=== PATIENT | male | born 1980 | race Hispanic/Latino ===

== ENCOUNTER 2016-11-17 10:04 | Emergency (ER) | payer MEDICAID ==
[2016-11-17 10:04] VITALS: BMI 24.2
[2016-11-17 10:31] VITALS: TEMP 97.8
--- NOTE | 2016-11-17 11:03 | ED PDOC ---
Arrival/HPI - General Chief Complaint: Lower Extremity Problem/Injury Time Seen by Provider: 11/17/16 10:45 Historian: Patient - History of Present Illness Narrative History of Present Illness (Text): 11/17/16 11:00 36 y/o male, pmh including crohn's disease/osteoporosis/osteorarthitis, allergic to penicillin, c/o lt. knee pain x 3 days. Pt. stated that he was trying to sit on the yoga position, hyperflex the lt. knee with twisting, been having lt. knee pain since, no thigh pain, no numbness or tingling, no fever or chills, no headache or night sweat, no other medical or psychological complaints. Past Medical History - Provider Review Nursing Documentation Reviewed: Yes - Infectious Disease Hx of Infectious Diseases: None - Tetanus Immunization Tetanus Immunization: Unknown - Cardiac Hx Cardiac Disorders: No - Pulmonary Hx Asthma: Yes - Integumentary Hx Dermatological Disorder: Yes Hx Eczema: Yes - Musculoskeletal/Rheumatological Hx Arthritis: Yes Hx Osteoporosis: Yes - Gastrointestinal Hx Crohn's Disease: Yes Other/Comment: feeding tube reveresed - Genitourinary/Gynecological Hx Genitourinary Disorders: No - Psychiatric Hx Psychophysiologic Disorder: No Hx Substance Use: No - Surgical History Other/Comment: Stomach sx from perforated intestine. cyst removed from abdomen - Anesthesia Hx Anesthesia: Yes Hx Anesthesia Reactions: No Family/Social History - Physician Review Nursing Documentation Reviewed: Yes Family/Social History: Unknown Family HX Smoking Status: Never Smoked Hx Alcohol Use: Yes Frequency of alcohol use: Socially Hx Substance Use: No Allergies/Home Meds Allergies/Adverse Reactions: Allergies lactulose Allergy (Verified 11/17/16 10:25) ANAPHYLAXIS Penicillins Allergy (Verified 11/17/16 10:25) ANAPHYLAXIS Home Medications: Home Meds Medication Instructions Recorded Confirmed Asacol HD 800mg 800 mg PO BID 03/21/16 11/17/16 Azithromycin [Zithromax] 250 mg PO DAILY 11/17/16 11/17/16 inFLIXimab [Remicade] 100 mg IV ONCE 11/17/16 11/17/16 Review of Systems - Review of Systems Constitutional: absent: Fatigue, Fevers Eyes: absent: Vision Changes ENT: absent: Hearing Changes Respiratory: absent: SOB, Cough Cardiovascular: absent: Chest Pain Musculoskeletal: Arthralgias, Myalgias. absent: Back Pain, Neck Pain, Joint Swelling Skin: absent: Rash, Pruritis, Skin Lesions Neurological: absent: Headache, Dizziness Physical Exam Vital Signs Reviewed: Yes Vital Signs Temp Pulse Resp BP Pulse Ox 11/17/16 10:29 97.8 F 75 19 125/82 95 Temperature: Afebrile Blood Pressure: Normal Pulse: Regular Respiratory Rate: Normal Appearance: Positive for: Well-Appearing, Non-Toxic, Comfortable Pain Distress: Moderate Mental Status: Positive for: Alert and Oriented X 3 - Systems Exam Head: Present: Atraumatic, Normocephalic Pupils: Present: PERRL Extroacular Muscles: Present: EOMI Conjunctiva: Present: Normal Mouth: Present: Moist Mucous Membranes Neck: Present: Normal Range of Motion Respiratory/Chest: Present: Clear to Auscultation, Good Air Exchange. No: Respiratory Distress, Accessory Muscle Use Cardiovascular: Present: Regular Rate and Rhythm, Normal S1, S2. No: Murmurs Abdomen: Present: Normal Bowel Sounds. No: Tenderness, Distention, Peritoneal Signs Back: Present: Normal Inspection Upper Extremity: Present: Normal Inspection. No: Cyanosis, Edema Lower Extremity: Present: Normal Inspection, Other (LLE: +ttp on the extensor distal thigh region, no joint swelling, FROM without limitation, sensation intact, motor 5/5, +DPPT pulses, capillary refill< 2 seconds, neurovascular intact. ). No: Edema Neurological: Present: GCS=15, CN II-XII Intact, Speech Normal Skin: Present: Warm, Dry, Normal Color. No: Rashes Psychiatric: Present: Alert, Oriented x 3, Normal Insight, Normal Concentration Medical Decision Making ED Course and Treatment: 11/17/16 11:02 -LLE venuous doppler/xray -indocin -harvinder wrap/crutches. 11/17/16 12:07 -LLE Venuous Doppler: as per preliminary report, no acute DVT -Lt. knee xray: no fracture or dislocation -Pt. feels better, will discharge home -Discharge home with indocin, harvinder wrap, crutches, ice compression, follow up with your own pmd and orthopedic within 2 days, return to the ER for any new or worsening signs or symptoms. - RAD Interpretation Radiology Orders: 11/17/16 10:59 KNEE WITH PATELLA LEFT 3 VIEW [RAD] Stat 11/17/16 11:03 DUPLEX LOWER EXTRM VEIN LEFT [US] Stat LLE Venuous Doppler: as per preliminary report, no acute DVT Lt. knee xray: no fracture or dislocation Computer Systems Security Administrator: Radiologist - Medication Orders Current Medication Orders: Discontinued Medications Indomethacin (Indocin) 50 mg PO STAT STA Stop: 11/17/16 11:00 - PA / BUSINESS ETHICS PROFESSOR / Resident Statement MD/DO has reviewed & agrees with the documentation as recorded. Disposition/Present on Arrival - Present on Arrival Any Indicators Present on Arrival: No History of DVT/PE: No History of Uncontrolled Diabetes: No Urinary Catheter: No History of Decub. Ulcer: No History Surgical Site Infection Following: None - Disposition Have Diagnosis and Disposition been Completed?: Yes Diagnosis: Tendinitis, Knee pain Disposition: HOME/ ROUTINE Disposition Time: 11:03 Patient Plan: Discharge Patient Problems: Current Active Problems Problem Status Onset Tendinitis Acute Condition: GOOD Additional Instructions: -Discharge home with indocin, harvinder wrap, crutches, ice compression, follow up with your own pmd and orthopedic within 2 days, return to the ER for any new or worsening signs or symptoms. Prescriptions: Indomethacin [Indocin] 50 mg PO TID PRN #30 cap PRN Reason: Other Referrals: Holly Meza MD [Primary Care Provider] - Follow up with primary Cherise Yoder MD [Staff Provider] - Follow up with primary Forms: [email or web address] (Indonesian), WORK NOTE
--- NOTE | 2016-11-17 12:26 | RAD ---
PROCEDURE: Left Knee Radiographs. HISTORY: Pain. COMPARISON: None. FINDINGS: BONES: Normal. No fracture. JOINTS: Normal. No osteoarthritis. JOINT EFFUSION: None. OTHER FINDINGS: None. IMPRESSION: Normal radiographs of the left knee.
[2016-11-17 12:33] VITALS: BP 122/80; PULSE 81; RESP 18; O2SAT 99
--- NOTE | 2016-11-17 14:59 | US ---
PROCEDURE: Left lower extremity venous US HISTORY: Leg pain and swelling. Evaluate for DVT. PHYSICIAN(S): Earle Chicas MD. TECHNIQUE: Duplex sonography and color-flow Doppler with graded compression were used to evaluate the deep venous system of the left lower extremity. FINDINGS: The visualized deep venous system of the left lower extremity is sonographically normal and compressible. Normal wave forms and augmentation are seen. There is no sonographic evidence for deep venous thrombosis in the visualized segments of the left lower extremity. IMPRESSION: 1. No sonographic evidence for deep venous thrombosis in the visualized segments of the left lower extremity.
== END 2016-11-17 12:56 | disposition home or self-care (01) ==
LOC: ED 10:04
DX: M76.892 Other specified enthesopathies of left lower limb, excluding foot (principal); M25.562 Pain in left knee

== ENCOUNTER 2017-07-04 01:31 | Observation (INO) | payer MEDICAID ==
[2017-07-04 01:37] VITALS: BMI 25.8
[2017-07-04 01:48] VITALS: PULSE 80
--- NOTE | 2017-07-04 02:06 | ED PDOC ---
Arrival/HPI - General Chief Complaint: Abdominal Pain Time Seen by Provider: 07/04/17 01:44 Historian: Patient - History of Present Illness Narrative History of Present Illness (Text): 07/04/17 02:06 Jona Wong is a 36 year old male, whose past medical history includes Crohn's disease, who presents to the emergency department complaining of constipation. Patient states for the past 3 days, he has been having difficulty moving his bowels and straining while using the bathroom. Patient notes associated lower abdominal pressure. Patient states discomfort is not similar to his usual Crohn' s symptoms. Patient denies any fever, chills, chest pain, shortness of breath, nausea, vomiting, diarrhea, urinary symptoms, back pain, neck pain, headache, dizziness, or any other complaints. Symptom Onset: Gradual Symptom Course: Unchanged Activities at Onset: Light Context: Home Past Medical History - Provider Review Nursing Documentation Reviewed: Yes - Infectious Disease Hx of Infectious Diseases: None - Tetanus Immunization Tetanus Immunization: Unknown - Cardiac Hx Cardiac Disorders: No - Pulmonary Hx Asthma: Yes - Neurological Hx Neurological Disorder: No - HEENT Hx HEENT Disorder: No - Renal Hx Renal Disorder: No - Endocrine/Metabolic Hx Endocrine Disorders: No - Hematological/Oncological Hx Blood Disorders: No - Integumentary Hx Dermatological Disorder: Yes Hx Eczema: Yes - Musculoskeletal/Rheumatological Hx Arthritis: Yes Hx Osteoporosis: Yes - Gastrointestinal Hx Crohn's Disease: Yes Other/Comment: feeding tube reveresed - Genitourinary/Gynecological Hx Genitourinary Disorders: No - Psychiatric Hx Psychophysiologic Disorder: No Hx Depression: Yes Hx Substance Use: No - Surgical History Other/Comment: Stomach sx from perforated intestine. cyst removed from abdomen - Anesthesia Hx Anesthesia: Yes Hx Anesthesia Reactions: No Family/Social History - Physician Review Nursing Documentation Reviewed: Yes Family/Social History: Unknown Family HX Smoking Status: Never Smoked Hx Alcohol Use: Yes Frequency of alcohol use: Socially Hx Substance Use: No Allergies/Home Meds Allergies/Adverse Reactions: Allergies lactulose Allergy (Verified 07/04/17 01:37) ANAPHYLAXIS Penicillins Allergy (Verified 07/04/17 01:37) ANAPHYLAXIS Home Medications: Home Meds Medication Instructions Recorded Confirmed Asacol HD 800mg 800 mg PO TID 03/21/16 07/04/17 Purinenthal 50 mg PO DAILY 07/04/17 07/04/17 Review of Systems - Physician Review All systems were reviewed & negative as marked: Yes - Review of Systems Constitutional: Normal. absent: Fevers Eyes: Normal ENT: Normal Respiratory: Normal. absent: SOB, Cough Cardiovascular: Normal. absent: Chest Pain Gastrointestinal: Abdominal Pain, Constipation. absent: Diarrhea, Vomiting Genitourinary Male: Normal. absent: Dysuria, Frequency, Hematuria, Urinary Output Changes Musculoskeletal: Normal. absent: Back Pain, Neck Pain Skin: Normal. absent: Rash Neurological: Normal. absent: Headache, Dizziness Endocrine: Normal Hemo/Lymphatic: Normal Psychiatric: Normal Physical Exam Vital Signs Reviewed: Yes Vital Signs Temp Pulse Resp BP Pulse Ox 07/04/17 07:20 98.1 F 80 18 142/87 99 07/04/17 01:43 97.8 F 80 18 156/94 H 96 Temperature: Afebrile Blood Pressure: Normal Pulse: Regular Respiratory Rate: Normal Appearance: Positive for: Well-Appearing, Non-Toxic, Comfortable Pain Distress: None Mental Status: Positive for: Alert and Oriented X 3 - Systems Exam Head: Present: Atraumatic, Normocephalic Pupils: Present: PERRL Extroacular Muscles: Present: EOMI Conjunctiva: Present: Normal Mouth: Present: Moist Mucous Membranes Neck: Present: Normal Range of Motion Respiratory/Chest: Present: Clear to Auscultation, Good Air Exchange. No: Respiratory Distress, Accessory Muscle Use Cardiovascular: Present: Regular Rate and Rhythm, Normal S1, S2. No: Murmurs Abdomen: Present: Normal Bowel Sounds. No: Tenderness, Distention, Peritoneal Signs Back: Present: Normal Inspection Upper Extremity: Present: Normal Inspection. No: Cyanosis, Edema Lower Extremity: Present: Normal Inspection. No: Edema Neurological: Present: GCS=15, CN II-XII Intact, Speech Normal Skin: Present: Warm, Dry, Normal Color. No: Rashes Psychiatric: Present: Alert, Oriented x 3, Normal Insight, Normal Concentration Medical Decision Making ED Course and Treatment: 07/04/17 02:06 Impression: 36 year old male complaining of constipation and lower abdominal discomfort. Plan: -- CT Abdomen and Pelvis -- Labs, lipase -- Urinalysis -- IV fluids -- Reassess and disposition Progress Notes: 07/04/17 04:56 CT Abdomen and Pelvis shows: Artifacts: Overlying clothing artifacts. Lower thorax: There is bibasilar atelectasis. ABDOMEN: Liver: Enlarged fatty liver. Gallbladder and bile ducts: Contracted gallbladder the gallbladder wall prominence. Pancreas: Unremarkable. No mass. No ductal dilation. Spleen: Unremarkable. No splenomegaly. Adrenals: Unremarkable. No mass. Kidneys and ureters: Unremarkable. No solid mass. No hydronephrosis. Stomach and bowel: There is focal colonic narrowing in the mid transverse colon seen on image 54 series 601 suspicious for stricture. An occult annular constricting lesion cannot be excluded. No definite colonic obstruction is noted at this time. There is colonic thickening with cicatrization of the mesentery around the colon with moderate amount of stool correlation with clinical data is recommended if active infectious or inflammatory colitis as clinically suspected. Intrapelvic fat deposition. Correlation with patient's history of inflammatory bowel disease may be helpful. There is radiopaque densities within the stomach likely representing ingested material/ tablets. There are nonspecific fluid filled stomach, small bowel loops. These findings can represent ileus versus gastroenteritis/enteritis versus slow transit versus peristalsis. Appendix: Normal appendix. PELVIS: Bladder: Partially distended bladder. Reproductive: Unremarkable. ABDOMEN and PELVIS: Intraperitoneal space: Unremarkable. No free air. No significant fluid collection. Bones/joints: No acute fracture. No dislocation. Soft tissues: Unremarkable. Vasculature: Unremarkable. No abdominal aortic aneurysm. Lymph nodes: Unremarkable. No enlarged lymph nodes. IMPRESSION: 1. There is focal colonic narrowing in the mid transverse colon seen on image 54 series 601 suspicious for stricture. An occult annular constricting lesion cannot be excluded. No definite colonic obstruction is noted at this time. 2. There is colonic thickening with cicatrization of the mesentery around the colon with moderate amount of stool correlation with clinical data is recommended if active infectious or inflammatory colitis as clinically suspected. Correlation with internal medicine /gastroenterology history clinical evaluation and further workup or followup as recommended by patient's clinical data 07/04/17 05:14 Case discussed with diagnostic medical sonographer music professionals, who is aware and agrees with plan. 07/04/17 05:[address] Hendrickson, who is aware and agrees with plan. Accepts pt in to the hospitalist service. Pt will go to [facility] observation for colitis. - Lab Interpretations Lab Results: 07/04/17 02:12 07/04/17 02:12 Lab Results 07/04/17 04:30: Urine Color Yellow, Urine Appearance Clear, Urine pH 6.0, Ur Specific [place] 1.025, Urine Protein Negative, Urine Glucose (UA) Negative, Urine Ketones Negative, Urine Blood Negative, Urine Nitrate Negative, Urine Bilirubin Negative, Urine Urobilinogen 0.2, Ur Leukocyte Esterase Negative 07/04/17 02:12: Phosphorus 4.0, Magnesium 2.1 07/04/17 02:12: Sodium 144, Potassium 3.9, Chloride 104, Carbon Dioxide 25, Anion Gap 19, BUN 14, Creatinine 0.8, Est GFR ( Amer) > 60, Est GFR (Non- Af Amer) > 60, Random Glucose 110, Calcium 9.6, Total Bilirubin 0.5, AST 30, ALT 43, Alkaline Phosphatase 68, Total Protein 8.3, Albumin 4.2, Globulin 4.1, Albumin/Globulin Ratio 1.0 L, Lipase 44 07/04/17 02:12: PT 12.0, INR 1.05, APTT 31.7 07/04/17 02:12: WBC 7.4, RBC 4.61, Hgb 14.7, Hct 41.5 L, MCV 90.0, MCH 31.9, MCHC 35.4, RDW 13.3, Plt Count 220, MPV 10.1, Gran % 58.5, Lymph % (Auto) 26.2, [place] % (Auto) 11.7 H, Eos % (Auto) 3.5, Baso % (Auto) 0.1, Gran # 4.32, Lymph # (Auto) 1.9, [place] # (Auto) 0.9 H, Eos # (Auto) 0.3, Baso # (Auto) 0.01 I have reviewed the lab results: Yes - RAD Interpretation Radiology Orders: 07/04/17 03:00 ABD & PELVIS IV CONTRAST ONLY [CT] Stat Environmental Journalist: Radiologist - Medication Orders Current Medication Orders: Discontinued Medications Sodium Chloride (Sodium Chloride 0.9%) 1,000 mls @ 100 mls/hr IV .Q10H STA Stop: 07/04/17 12:07 Last Admin: 07/04/17 02:16 Dose: 100 mls/hr eMAR Start Stop Document 07/04/17 02:16 OCS (Rec: 07/04/17 02:17 OCS [id number]) Intravenous Solution Start Date 07/04/17 Start Time 02:17 Sodium Chloride (Sodium Chloride 0.9%) 1,000 mls @ 100 mls/hr IV .Q10H SEBASTIEN Last Admin: 07/04/17 05:55 Dose: 100 mls/hr eMAR Start Stop Document 07/04/17 05:55 SS (Rec: 07/04/17 05:55 SS [id number]) Intravenous Solution Start Date 07/04/17 Start Time 05:55 Metronidazole (Flagyl) 500 mg in 100 mls @ 100 mls/hr IVPB Q8 SEBASTIEN PRN Reason: Protocol Last Admin: 07/04/17 14:21 Dose: 100 mls/hr eMAR Start Stop Document 07/04/17 14:21 LO (Rec: 07/04/17 14:22 LO [id number]) Intravenous Solution Start Date 07/04/17 Start Time 14:21 Levofloxacin/Dextrose (Levaquin 500mg) 500 mg in 100 mls @ 100 mls/hr IVPB DAILY SEBASTIEN PRN Reason: Protocol Last Admin: 07/04/17 13:21 Dose: 100 mls/hr eMAR Start Stop Document 07/04/17 13:21 LO (Rec: 07/04/17 14:21 LO [id number]) Intravenous Solution Start Date 07/04/17 Start Time 14:21 Mesalamine (Asacol Hd 800mg) 800 mg PO TID SEBASTIEN Last Admin: 07/04/17 14:21 Dose: 800 mg Purinenthal 50 Mg ( (Home Med)) 50 mg PO DAILY SEBASTIEN Last Admin: 07/04/17 09:56 Dose: Pantoprazole Sodium (Protonix Inj) 40 mg IVP DAILY SEBASTIEN Last Admin: 07/04/17 09:56 Dose: 40 mg IVP Administration Document 07/04/17 09:56 LO (Rec: 07/04/17 09:56 LO [id number]) Charges for Administration # of IVP Administrations 1 Polyethylene Glycol (Miralax) 17 gm PO STAT STA Stop: 07/04/17 05:21 Last Admin: 07/04/17 05:55 Dose: 17 gm - Scribe Statement The provider has reviewed the documentation as recorded by the Harrison Childers Provider Scribe Attestation: All medical record entries made by the Scribe were at my direction and personally dictated by me. I have reviewed the chart and agree that the record accurately reflects my personal performance of the history, physical exam, medical decision making, and the department course for this patient. I have also personally directed, reviewed, and agree with the discharge instructions and disposition. Disposition/Present on Arrival - Present on Arrival Any Indicators Present on Arrival: No History of DVT/PE: No History of Uncontrolled Diabetes: No Urinary Catheter: No History of Decub. Ulcer: No History Surgical Site Infection Following: None - Disposition Have Diagnosis and Disposition been Completed?: Yes Diagnosis: Crohn disease, Colitis Disposition: HOSPITALIZED Disposition Time: 05:15 Condition: GOOD
[2017-07-04] MEDS ORDERED: Sodium Chloride 0.9% 1,000 ML IV STA (02:08)
[2017-07-04 02:46] LABS: BASO # 0.01 K/mm3 (0.0-2.0); BASO % 0.1 % (0.0-3.0); EOS # 0.3 (0.0-0.7); EOS % 3.5 % (1.5-5.0); GRAN # 4.32 (1.4-6.5); GRAN % 58.5 % (50.0-68.0); HEMOGLOBIN 14.7 g/dL (14.0-18.0); LYMPH # 1.9 (1.2-3.4); LYMPH % 26.2 % (22.0-35.0); MEAN CORPUSCULAR HEMOGLOBIN 31.9 pg (25.0-35.0); MEAN CORPUSCULAR HGB CONC 35.4 g/dl (31.0-37.0); MEAN PLATELET VOLUME 10.1 fl (7.0-11.0); MONO # 0.9 (0.1-0.6); MONO % 11.7 % (1.0-6.0); RBC 4.61 10^6/uL (3.5-6.1); RED CELL DISTRIBUTION WIDTH 13.3 % (11.5-14.5); WHITE BLOOD COUNT 7.4 10^3/ul (4.5-11.0)
[2017-07-04 02:58] LABS: INR 1.05 (0.93-1.08); PARTIAL THROMBOPLASTIN TIME 31.7 Seconds (25.1-36.5)
[2017-07-04 02:59] LABS: ALBUMIN 4.2 g/dL (3.0-4.8); ALT/SGPT 43 U/L (7-56); AST/SGOT 30 U/L (17-59); BLOOD UREA NITROGEN 14 mg/dL (7-21); CALCIUM 9.6 mg/dL (8.4-10.5); GFR AFRICAN-AMERICAN > 60; GFR NON-AFRICAN AMERICAN > 60; LIPASE 44 U/L (23-300)
[2017-07-04] MEDS ORDERED: Iohexol 350 MG/100 ML VIAL ONE (03:27)
[2017-07-04 04:41] LABS: URINE BILIRUBIN NEGATIVE (NEGATIVE); URINE BLOOD NEGATIVE (NEGATIVE); URINE GLUCOSE (UA) NEGATIVE (NEGATIVE); URINE LEUKOCYTE ESTERASE NEGATIVE Leu/uL (NEGATIVE); URINE PROTEIN NEGATIVE mg/dL (<30 mg/dL); URINE UROBILINOGEN 0.2 E.U./dL (<1 E.U./dL)
[2017-07-04 04:47] LABS: URINE APPEARANCE CLEAR (CLEAR); URINE COLOR YELLOW (YELLOW)
--- NOTE | 2017-07-04 04:54 | CT ---
EXAM: CT Abdomen and Pelvis With Intravenous Contrast CLINICAL HISTORY: 36 years old, male; Pain; Abdominal pain; Additional info: Abd pain TECHNIQUE: Axial computed tomography images of the abdomen and pelvis with intravenous contrast. All CT scans at this facility use one or more dose reduction techniques, viz.: automated exposure control; ma/kV adjustment per patient size (including targeted exams where dose is matched to indication; i.e. head); or iterative reconstruction technique. 622 images are submitted. Coronal and sagittal reformatted images were created and reviewed. Axial reformatted images were created and reviewed. CONTRAST: 96 mL of OMNI 350 administered intravenously. COMPARISON: No relevant prior studies available. FINDINGS: Artifacts: Overlying clothing artifacts. Lower thorax: There is bibasilar atelectasis. ABDOMEN: Liver: Enlarged fatty liver. Gallbladder and bile ducts: Contracted gallbladder the gallbladder wall prominence. Pancreas: Unremarkable. No mass. No ductal dilation. Spleen: Unremarkable. No splenomegaly. Adrenals: Unremarkable. No mass. Kidneys and ureters: Unremarkable. No solid mass. No hydronephrosis. Stomach and bowel: There is focal colonic narrowing in the mid transverse colon seen on image 54 series 601 suspicious for stricture. An occult annular constricting lesion cannot be excluded. No definite colonic obstruction is noted at this time. There is colonic thickening with cicatrization of the mesentery around the colon with moderate amount of stool correlation with clinical data is recommended if active infectious or inflammatory colitis as clinically suspected. Intrapelvic fat deposition. Correlation with patient's history of inflammatory bowel disease may be helpful. There is radiopaque densities within the stomach likely representing ingested material/tablets. There are nonspecific fluid filled stomach, small bowel loops. These findings can represent ileus versus gastroenteritis/enteritis versus slow transit versus peristalsis. Appendix: Normal appendix. PELVIS: Bladder: Partially distended bladder. Reproductive: Unremarkable. ABDOMEN and PELVIS: Intraperitoneal space: Unremarkable. No free air. No significant fluid collection. Bones/joints: No acute fracture. No dislocation. Soft tissues: Unremarkable. Vasculature: Unremarkable. No abdominal aortic aneurysm. Lymph nodes: Unremarkable. No enlarged lymph nodes. IMPRESSION: 1. There is focal colonic narrowing in the mid transverse colon seen on image 54 series 601 suspicious for stricture. An occult annular constricting lesion cannot be excluded. No definite colonic obstruction is noted at this time. 2. There is colonic thickening with cicatrization of the mesentery around the colon with moderate amount of stool correlation with clinical data is recommended if active infectious or inflammatory colitis as clinically suspected. Correlation with internal medicine /gastroenterology history clinical evaluation and further workup or followup as recommended by patient's clinical data.
[2017-07-04] MEDS ORDERED: POLYETHYLENE GLYCOL 3350 17 GM/Dose PACKET PO STA (05:20)
[2017-07-04] MEDS ORDERED: Sodium Chloride 0.9% 1,000 ML IV SCH (05:45)
--- NOTE | 2017-07-04 05:52 | CP.PCM.HP ---
<Cristhian Espino - Last Filed: 07/04/17 06:08> History of Present Illness - History of Present Illness History of Present Illness: CC: Constipation, Abdominal pain Pt is a 36 yo M with PMH of Crohn's, asthma, arthritis, and osteoporosis 2/2 chronic steroid use presents to ED due to 3 day history of intermittent abdominal pain, feeling "gassy", and constipation. Pt states that due to his history of Crohn's he usually has intermittent episodes of diarrhea and has never experienced constipation. Pt describes stool as hard and small, but denies any melena or hematochezia. Pt states that anytime he sits down he feels a need to have a BM. Pt states that lower abdominal pain is achy and goes down to his rectum. Pt denies CP, SOB, n/v/d, fever, chills, [place], dizziness, and dysuria. PMH: Crohn's, asthma, arthritis, and osteoporosis 2/2 chronic steroid Surg: Ex Lap for gastric perforation 2/2 colonscopy All: Lactulose, PCN FHx: HTN, anxiety SH: Social EtOH use, denied tobacco and illicit drug use PMD: Derrick GI: Heri Present on Admission - Present on Admission Any Indicators Present on Admission: No Review of Systems - Review of Systems Review of Systems: 12 point ROS reviewed and is negative other than what is stated in HPI. Past Patient History - Infectious Disease Hx of Infectious Diseases: None - Tetanus Immunizations Tetanus Immunization: Unknown - Past Social History Smoking Status: Never Smoked - CARDIAC Hx Cardiac Disorders: No - PULMONARY Hx Asthma: Yes - NEUROLOGICAL Hx Neurological Disorder: No - HEENT Hx HEENT Problems: No - RENAL Hx Chronic Kidney Disease: No - ENDOCRINE/METABOLIC Hx Endocrine Disorders: No - HEMATOLOGICAL/ONCOLOGICAL Hx Blood Disorders: No - INTEGUMENTARY Hx Dermatological Problems: Yes Hx Eczema: Yes - MUSCULOSKELETAL/RHEUMATOLOGICAL Hx Arthritis: Yes Hx Osteoporosis: Yes - GASTROINTESTINAL Hx Crohn's Disease: Yes Other/Comment: feeding tube reveresed - GENITOURINARY/GYNECOLOGICAL Hx Genitourinary Disorders: No - PSYCHIATRIC Hx Psychophysiologic Disorder: No Hx Depression: Yes Hx Substance Use: No - SURGICAL HISTORY Other/Comment: Stomach sx from perforated intestine. cyst removed from abdomen - ANESTHESIA Hx Anesthesia: Yes Hx Anesthesia Reactions: No Meds Allergies/Adverse Reactions: Allergies Allergy/AdvReac Type Severity Reaction Status Date / Time lactulose Allergy ANAPHYLAXIS Verified 07/04/17 01:37 Penicillins Allergy ANAPHYLAXIS Verified 07/04/17 01:37 Physical Exam - Constitutional Appears: No Acute Distress - Head Exam Head Exam: NORMAL INSPECTION - Eye Exam Eye Exam: Normal appearance - ENT Exam ENT Exam: Mucous Membranes Moist - Neck Exam Neck exam: Positive for: Normal Inspection - Respiratory Exam Respiratory Exam: Clear to Auscultation Bilateral. absent: Rales, Rhonchi, Wheezes - Cardiovascular Exam Cardiovascular Exam: RRR, +S1, +S2. absent: Diastolic murmur, Gallop, Rubs, Systolic Murmur - GI/Abdominal Exam GI & Abdominal Exam: Soft. absent: Distended, Guarding, Rebound, Tenderness Additional comments: Midline scar consistent with ex lap - Extremities Exam Extremities exam: Positive for: normal inspection - Back Exam Back exam: NORMAL INSPECTION - Neurological Exam Neurological exam: Alert, CN II-XII Intact, Oriented x3 - Psychiatric Exam Psychiatric exam: Normal Affect, Normal Mood - Skin Skin Exam: Dry, Intact, Normal Color, Warm Results - Vital Signs Recent Vital Signs: Last Vital Signs Temp 97.8 F 07/04/17 01:43 Pulse 80 07/04/17 01:43 Resp 18 07/04/17 01:43 BP 156/94 H 07/04/17 01:43 Pulse Ox 96 07/04/17 01:43 - Labs Result Diagrams: 07/04/17 02:12 07/04/17 02:12 Assessment & Plan - Assessment and Plan (Free Text) Assessment: 36 yo M with PMH of Crohn's, asthma, arthritis, and osteoporosis 2/2 chronic steroid admitted for abdominal pain with finding on CT concerning for sstricture and colitis. Plan: 1. Abdominal pain with h/o Crohn's - CT abd/pelv showed focal colonic narrowing in the mid trnasverse colon suspicious for stricture, no definite obstruction at this time. Colonic thickening with cicatrization of mesentary around the colon with moderate amount of stool - Afebrile, no leukocytosis - H/H stable - LFT's and lipase WNL - Miralax given in ED - NPO, IVF - GI consulted GI/DVT PPx - Protonix - SCDs Pt seen and discussed in detail with Dr. Hendrickson. Miguel Angel Espino, PGY1 <Lulu Hendrickson - Last Filed: 07/04/17 06:12> Results - Vital Signs Recent Vital Signs: Last Vital Signs Temp 97.8 F 07/04/17 01:43 Pulse 80 07/04/17 01:43 Resp 18 07/04/17 01:43 BP 156/94 H 07/04/17 01:43 Pulse Ox 96 07/04/17 01:43 - Labs Result Diagrams: 07/04/17 02:12 07/04/17 02:12 Attending/Attestation - Attestation I have personally seen and examined this patient.: Yes I have fully participated in the care of the patient.: Yes I have reviewed all pertinent clinical information: Yes Notes (Text): 07/04/17 06:11 Agree with documentation and orders placed.
[2017-07-04 07:20] VITALS: BP 142/87; TEMP 98.1; O2SAT 99
[2017-07-04] MEDS: Mesalamine 800 mg DR Tab PO SCH ×2 (09:55→14:21)
[2017-07-04] MEDS ORDERED: [UNRECOGNIZED DRUG - OTHER] PO SCH (10:00)
[2017-07-04 12:32] VITALS: RESP 16
[2017-07-04] MEDS ORDERED: levoFLOXacin 500 mg in D5W 500 MG/100 ML BAG IVPB SCH (13:00)
[2017-07-04] MEDS ORDERED: metroNIDAZOLE IV 500 mg/100 ml 500 MG/100 ML BAG IVPB SCH (14:00)
--- NOTE | 2017-07-04 17:38 | CON ---
DATE: 07/04/2017 HISTORY OF PRESENT ILLNESS: I saw Mr. Wong in the emergency room. The patient is a 36-year-old white male with history of Crohn disease, seen in the emergency room for complaints of epigastric tightness, abdominal pain, some nausea. The patient indicates the discomfort was increasing in intensity over the past several days. The patient has a diagnosis of , and is seeing a Dr. Liriano from [facility] on a periodic basis. MEDICATIONS: His medication regimen includes Remicade as well as Asacol and 6-mercaptopurine. PHYSICAL EXAMINATION: VITAL SIGNS: I reviewed this patient's vital signs. HEENT: Noncontributory. LUNGS: Clear to auscultation. HEART: Regular rhythm. ABDOMEN: Soft, mildly protuberant. The patient has some tenderness in the area of the right paraumbilical, above the umbilicus as well as the left paraumbilical. He also gets some mild epigastric discomfort. LABORATORY DATA: I reviewed this patient's laboratory data, which consists of normal white count, H and H of 14 and 41, platelet count of 220. His INR is within normal limits. The comp metabolic profile is within normal limits. Review of the abdominal CT scan report indicates a focal colonic narrowing in the area of the midtransverse colon and there is colonic thickening with sequestration of the mesentery around the colon with moderate amount of stool. Note that, on examination, a substantial amount of stool is present in the area to the right of the umbilicus as well as in the area of the presumptive proximal transverse colon, some of these stool is felt in the area of the left lower quadrant, in the area of the sigmoid. ASSESSMENT AND PLAN: This is a 36-year-old male who complaints of abdominal pain, questionably due to either gastroenteritis or segmental colitis in the area of the midtransverse colon. Apparently, according to his past medical history, his Crohn disease was localized to the area of the distal colon in the past. I relayed the issue of possible treatment for the current issue and the patient was debating whether to stay in the hospital for observation or to see Dr. Liriano in the office today for further followup and evaluation. The patient was given the option of admission for treatment with IV fluids as well as antibiotic therapy in the form of Levaquin and metronidazole due to PENICILLIN ALLERGY. As of the time I left the ER, the patient had not decided to stay and will discuss the issue with Dr. Olivarez. Endoscopic evaluation is not warranted at this particular time point since he will be following up with Dr. Liriano currently. Hollis Monroe DO
--- NOTE | 2017-07-04 18:15 | CP.PCM.DIS ---
<Mirza Salguero - Last Filed: 07/04/17 18:07> Provider - Provider Date of Admission: 07/04/17 05:21 Attending physician: Miguel Chang MD Primary care physician: Holly Meza MD Consults: GI: Fer Time Spent in preparation of Discharge (in minutes): 35 Diagnosis - Discharge Diagnosis (1) Crohn disease Status: Chronic Priority: Medium (2) Colitis Status: Acute Priority: High Hospital Course - Lab Results Lab Results: Most Recent Lab Values WBC 7.4 10^3/ul (4.5-11.0) 07/04/17 02:12 RBC 4.61 10^6/uL (3.5-6.1) 07/04/17 02:12 Hgb 14.7 g/dL (14.0-18.0) 07/04/17 02:12 Hct 41.5 % (42.0-52.0) L 07/04/17 02:12 MCV 90.0 fl (80.0-105.0) 07/04/17 02:12 MCH 31.9 pg (25.0-35.0) 07/04/17 02:12 MCHC 35.4 g/dl (31.0-37.0) 07/04/17 02:12 RDW 13.3 % (11.5-14.5) 07/04/17 02:12 Plt Count 220 10^3/uL (120.0-450.0) 07/04/17 02:12 MPV 10.1 fl (7.0-11.0) 07/04/17 02:12 Gran % 58.5 % (50.0-68.0) 07/04/17 02:12 Lymph % (Auto) 26.2 % (22.0-35.0) 07/04/17 02:12 Spink % (Auto) 11.7 % (1.0-6.0) H 07/04/17 02:12 Eos % (Auto) 3.5 % (1.5-5.0) 07/04/17 02:12 Baso % (Auto) 0.1 % (0.0-3.0) 07/04/17 02:12 Gran # 4.32 (1.4-6.5) 07/04/17 02:12 Lymph # (Auto) 1.9 (1.2-3.4) 07/04/17 02:12 Spink # (Auto) 0.9 (0.1-0.6) H 07/04/17 02:12 Eos # (Auto) 0.3 (0.0-0.7) 07/04/17 02:12 Baso # (Auto) 0.01 K/mm3 (0.0-2.0) 07/04/17 02:12 PT 12.0 SECONDS (9.4-12.5) 07/04/17 02:12 INR 1.05 (0.93-1.08) 07/04/17 02:12 APTT 31.7 Seconds (25.1-36.5) 07/04/17 02:12 Sodium 144 mmol/L (132-148) 07/04/17 02:12 Potassium 3.9 mmol/L (3.6-5.0) 07/04/17 02:12 Chloride 104 mmol/L (98-107) 07/04/17 02:12 Carbon Dioxide 25 mmol/L (21-33) 07/04/17 02:12 Anion Gap 19 (10-20) 07/04/17 02:12 BUN 14 mg/dL (7-21) 07/04/17 02:12 Creatinine 0.8 mg/dl (0.8-1.5) 07/04/17 02:12 Est GFR ( Amer) > 60 07/04/17 02:12 Est GFR (Non-Af Amer) > 60 07/04/17 02:12 Random Glucose 110 mg/dL (70-110) 07/04/17 02:12 Calcium 9.6 mg/dL (8.4-10.5) 07/04/17 02:12 Phosphorus 4.0 mg/dL (2.5-4.5) 07/04/17 02:12 Magnesium 2.1 mg/dL (1.7-2.2) 07/04/17 02:12 Total Bilirubin 0.5 mg/dL (0.2-1.3) 07/04/17 02:12 AST 30 U/L (17-59) 07/04/17 02:12 ALT 43 U/L (7-56) 07/04/17 02:12 Alkaline Phosphatase 68 U/L (38-126) 07/04/17 02:12 Total Protein 8.3 g/dL (5.8-8.3) 07/04/17 02:12 Albumin 4.2 g/dL (3.0-4.8) 07/04/17 02:12 Globulin 4.1 gm/dL 07/04/17 02:12 Albumin/Globulin Ratio 1.0 (1.1-1.8) L 07/04/17 02:12 Lipase 44 U/L (23-300) 07/04/17 02:12 Urine Color Yellow (YELLOW) 07/04/17 04:30 Urine Appearance Clear (CLEAR) 07/04/17 04:30 Urine pH 6.0 (4.7-8.0) 07/04/17 04:30 Ur Specific Berino 1.025 (1.005-1.035) 07/04/17 04:30 Urine Protein Negative mg/dL (<30 mg/dL) 07/04/17 04:30 Urine Glucose (UA) Negative mg/dL (NEGATIVE) 07/04/17 04:30 Urine Ketones Negative mg/dL (NEGATIVE) 07/04/17 04:30 Urine Blood Negative (NEGATIVE) 07/04/17 04:30 Urine Nitrate Negative (NEGATIVE) 07/04/17 04:30 Urine Bilirubin Negative (NEGATIVE) 07/04/17 04:30 Urine Urobilinogen 0.2 E.U./dL (<1 E.U./dL) 07/04/17 04:30 Ur Leukocyte Esterase Negative Jacque/uL (NEGATIVE) 07/04/17 04:30 - Hospital Course Hospital Course: Pt is a 36 yo M with PMH of Crohn's, asthma, arthritis, and osteoporosis 2/2 chronic steroid use who initially presented to the ED due to 3 day history of intermittent abdominal pain, feeling "gassy", and constipation. Patient had CT of the abdomen which was concerning for mid-transverse colon stricture and possible colitis. Patient was continued on his home medications, and made NPO. He was also started on antibiotics for colitis. He was seen by GI during his hospitalization (Dr. Monroe), who recommended antibiotics to treat the acute colitis. Patient already on a three-drug regimen for Crohn's and has had adverse effect from his detention steroid use. Today, his diet was advanced, until he tolerated solid food without pain, nausea , or vomiting. Patient continued to have small hard bowel movements, without overflow diarrhea. He denies fever, chills, chest pain, or shortness of breath. Patient has a GI doctor who he sees at [facility] [place] [facility]. Patient will see him following discharge. Patient requesting to go home. He was given prescriptions for a course of antibiotics for colitis, and repeatedly instructed to follow up with Dr. Lema the day after discharge. Patient agrees with and accepts plan. All questions were answered to his satisfaction, and he was discharged to home. Discharge Exam - Head Exam Head Exam: NORMAL INSPECTION - Eye Exam Eye Exam: EOMI, Normal appearance, PERRL Pupil Exam: NORMAL ACCOMODATION - ENT Exam ENT Exam: Mucous Membranes Moist - Respiratory Exam Respiratory Exam: Clear to PA & Lateral, NORMAL BREATHING PATTERN - Cardiovascular Exam Cardiovascular Exam: RRR, +S1, +S2 - GI/Abdominal Exam GI & Abdominal Exam: Hypoactive Bowel Sounds, Soft. absent: Distended, Firm, Guarding, Pulsatile Mass, Rebound, Rigid, Tenderness - Extremities Exam Extremities exam: normal inspection - Neurological Exam Neurological exam: Alert, CN II-XII Intact, Oriented x3 - Psychiatric Exam Psychiatric exam: Normal Affect, Normal Mood - Skin Skin Exam: Dry, Intact, Normal Color Discharge Plan - Discharge Medications Prescriptions: levoFLOXacin [Levaquin] 500 mg PO DAILY #7 tab Metronidazole [Flagyl] 500 mg PO TID #21 tablet - Follow Up Plan Condition: GOOD Disposition: HOME/ ROUTINE Instructions: Crohn's Disease in Adults, Constipation in Adults, Crohn's Disease (DC) Additional Instructions: 1. Follow up with Dr. Lema tomorrow 2. Continue Levaquin and Flagyl for 7 days 3. Continue all other medications as previously prescribed 4. Follow up with your primary care doctor within one week 5. For any new or worsening concerns, contact your PCP immediately or return to the ER Referrals: Holly Meza MD [Primary Care Provider] - <Lotus Dewey - Last Filed: 07/05/17 08:32> Provider - Provider Date of Admission: 07/04/17 05:21 Attending physician: Miguel Chang MD Primary care physician: Holly Meza MD Hospital Course - Lab Results Lab Results: Most Recent Lab Values WBC 7.4 10^3/ul (4.5-11.0) 07/04/17 02:12 RBC 4.61 10^6/uL (3.5-6.1) 07/04/17 02:12 Hgb 14.7 g/dL (14.0-18.0) 07/04/17 02:12 Hct 41.5 % (42.0-52.0) L 07/04/17 02:12 MCV 90.0 fl (80.0-105.0) 07/04/17 02:12 MCH 31.9 pg (25.0-35.0) 07/04/17 02:12 MCHC 35.4 g/dl (31.0-37.0) 07/04/17 02:12 RDW 13.3 % (11.5-14.5) 07/04/17 02:12 Plt Count 220 10^3/uL (120.0-450.0) 07/04/17 02:12 MPV 10.1 fl (7.0-11.0) 07/04/17 02:12 Gran % 58.5 % (50.0-68.0) 07/04/17 02:12 Lymph % (Auto) 26.2 % (22.0-35.0) 07/04/17 02:12 Spink % (Auto) 11.7 % (1.0-6.0) H 07/04/17 02:12 Eos % (Auto) 3.5 % (1.5-5.0) 07/04/17 02:12 Baso % (Auto) 0.1 % (0.0-3.0) 07/04/17 02:12 Gran # 4.32 (1.4-6.5) 07/04/17 02:12 Lymph # (Auto) 1.9 (1.2-3.4) 07/04/17 02:12 Spink # (Auto) 0.9 (0.1-0.6) H 07/04/17 02:12 Eos # (Auto) 0.3 (0.0-0.7) 07/04/17 02:12 Baso # (Auto) 0.01 K/mm3 (0.0-2.0) 07/04/17 02:12 PT 12.0 SECONDS (9.4-12.5) 07/04/17 02:12 INR 1.05 (0.93-1.08) 07/04/17 02:12 APTT 31.7 Seconds (25.1-36.5) 07/04/17 02:12 Sodium 144 mmol/L (132-148) 07/04/17 02:12 Potassium 3.9 mmol/L (3.6-5.0) 07/04/17 02:12 Chloride 104 mmol/L (98-107) 07/04/17 02:12 Carbon Dioxide 25 mmol/L (21-33) 07/04/17 02:12 Anion Gap 19 (10-20) 07/04/17 02:12 BUN 14 mg/dL (7-21) 07/04/17 02:12 Creatinine 0.8 mg/dl (0.8-1.5) 07/04/17 02:12 Est GFR ( Amer) > 60 07/04/17 02:12 Est GFR (Non-Af Amer) > 60 07/04/17 02:12 Random Glucose 110 mg/dL (70-110) 07/04/17 02:12 Calcium 9.6 mg/dL (8.4-10.5) 07/04/17 02:12 Phosphorus 4.0 mg/dL (2.5-4.5) 07/04/17 02:12 Magnesium 2.1 mg/dL (1.7-2.2) 07/04/17 02:12 Total Bilirubin 0.5 mg/dL (0.2-1.3) 07/04/17 02:12 AST 30 U/L (17-59) 07/04/17 02:12 ALT 43 U/L (7-56) 07/04/17 02:12 Alkaline Phosphatase 68 U/L (38-126) 07/04/17 02:12 Total Protein 8.3 g/dL (5.8-8.3) 07/04/17 02:12 Albumin 4.2 g/dL (3.0-4.8) 07/04/17 02:12 Globulin 4.1 gm/dL 07/04/17 02:12 Albumin/Globulin Ratio 1.0 (1.1-1.8) L 07/04/17 02:12 Lipase 44 U/L (23-300) 07/04/17 02:12 Urine Color Yellow (YELLOW) 07/04/17 04:30 Urine Appearance Clear (CLEAR) 07/04/17 04:30 Urine pH 6.0 (4.7-8.0) 07/04/17 04:30 Ur Specific Berino 1.025 (1.005-1.035) 07/04/17 04:30 Urine Protein Negative mg/dL (<30 mg/dL) 07/04/17 04:30 Urine Glucose (UA) Negative mg/dL (NEGATIVE) 07/04/17 04:30 Urine Ketones Negative mg/dL (NEGATIVE) 07/04/17 04:30 Urine Blood Negative (NEGATIVE) 07/04/17 04:30 Urine Nitrate Negative (NEGATIVE) 07/04/17 04:30 Urine Bilirubin Negative (NEGATIVE) 07/04/17 04:30 Urine Urobilinogen 0.2 E.U./dL (<1 E.U./dL) 07/04/17 04:30 Ur Leukocyte Esterase Negative Jacque/uL (NEGATIVE) 07/04/17 04:30 Attending/Attestation - Attestation I have personally seen and examined this patient.: Yes I have fully participated in the care of the patient.: Yes I have reviewed all pertinent clinical information, including history, physical exam and plan: Yes Notes (Text): 07/04/17 36 year old male with past medical history of Crohn's disease who presented with complaint of nausea, abdominal pain and constipation. CT abd/pelvis showed possible mid-transverse colon stricture and colitis. He was seen by GI who recommended antibiotics and outpatient GI followup. Patient's symptoms improved. His diet was advanced which he tolerated. He is discharged home to follow up with his pmd. Follow up with GI in 1-2 days. Lotus Dewey MD Hospitalist.
== END 2017-07-04 18:36 | disposition home or self-care (01) ==
LOC: ED 01:31 → ERH 05:21 → 3RNO 07:42
PROVIDERS: ADMIT Hospitalist; ATTEND Hospitalist
DX: K50.90 Crohn's disease, unspecified, without complications (principal); K52.9 Noninfective gastroenteritis and colitis, unspecified; K59.00 Constipation, unspecified; J45.909 Unspecified asthma, uncomplicated; M81.8 Other osteoporosis without current pathological fracture; T38.0X5A Adverse effect of glucocorticoids and synthetic analogues, initial encounter; Z87.11 Personal history of peptic ulcer disease; M19.90 Unspecified osteoarthritis, unspecified site; L30.9 Dermatitis, unspecified; Z88.0 Allergy status to penicillin; Z88.8 Allergy status to other drugs, medicaments and biological substances; Z87.892 Personal history of anaphylaxis; Z82.49 Family history of ischemic heart disease and other diseases of the circulatory system; Z81.8 Family history of other mental and behavioral disorders
CPT/HCPCS: 74177; 80053; 81003; 83690; 83735; 84100; 85025; 85610; 85730; 99284; C9113; G0378; J7040; Q9967